=== PATIENT | male | born 1985 | race Caucasian/White ===

== ENCOUNTER 2018-12-20 09:02 | Observation (INO) ==
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
[2018-12-20 09:44] LABS: URINE SOURCE CLEAN CATCH
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
[2018-12-20 09:59] LABS: BILIRUBIN URINE NEGATIVE (NEGATIVE); BLOOD URINE LARGE (NEGATIVE); COLOR BROWN; GLUCOSE URINE NEGATIVE (NEGATIVE); KETONE URINE NEGATIVE (NEGATIVE); LEUKOCYTES URINE NEGATIVE (NEGATIVE); NITRITE URINE NEGATIVE (NEGATIVE); PROTEIN URINE 100 mg/dL (NEGATIVE); TURBIDITY URINE HAZY (CLEAR); UR EPITHELIAL CELLS <10 /HPF (<10); URINE BACTERIA NEGATIVE /HPF; URINE RBC <10 /HPF (<10); UROBILINOGEN URINE NORMAL (NORMAL)
[2018-12-20 10:10] LABS: UR AMPHETAMINES QUAL PRESUMPTIVE POSITIVE (NONE DETECT); UR BARBITUATES QUAL NONE DETECTED (NONE DETECT); UR BENZODIAZEPIN QUAL PRESUMPTIVE POSITIVE (NONE DETECT); UR CANNABINOIDS QUAL PRESUMPTIVE POSITIVE (NONE DETECT); UR COCAINE QUAL NONE DETECTED (NONE DETECT); UR METHADONE QUAL NONE DETECTED (NONE DETECT); UR OPIATES QUAL PRESUMPTIVE POSITIVE (NONE DETECT); UR OXYCODONE QUAL NONE DETECTED (NONE DETECT); UR PCP QUAL NONE DETECTED (NONE DETECT)
[2018-12-20 10:16] LABS: BASO# 0.02 X1000 (0.0-0.2); BASO% 0.1 % (0.0-0.8); EOS# 0.03 X1000 (0.0-0.7); EOS% 0.2 % (0.0-10.0); HEMATOCRIT 39.9 % (42.0-52.0); HEMOGLOBIN 14.1 g/dL (14.0-18.0); IMM GRAN# 0.03 X1000 (0.0-0.04); IMM GRAN% 0.2 % (0.0-0.5); LYMPH# 1.11 X1000 (1.2-3.4); LYMPH% 7.4 % (20.5-51.1); MCH 31.3 PG (27-31); MCHC 35.3 g/dL (33-37); MCV 88.7 FL (81-99); MONO% 7.4 % (1.7-9.3); MPV 10.7 FL (7.4-10.4); NEUT# 12.66 X1000 (1.4-6.5); NEUT% 84.7 % (42.2-75.2); PLT 233 X1000 (130-400); RDW 14.1 % (11.5-14.5); WBC 14.95 X1000 (4.8-10.8)
[2018-12-20 10:29] LABS: AGAP 14; ALB/GLOB RATIO 1.1; ALBUMIN 3.9 g/dL (3.5-5.0); ALKALINE PHOSPHATASE 82 U/L (32-122); BUN 5 mg/dL (8-22); CALCIUM 8.5 mg/dL (8.8-10.2); CHLORIDE 101 mmol/L (98-107); COSMO 274; ESTIMATED GFR > 60; GLUCOSE 92 mg/dL (70-104); GOT 455 U/L (10-34); GPT 117 U/L (10-44); POTASSIUM 3.2 mmol/L (3.5-5.1); SODIUM 139 mmol/L (136-145); TCO2 24 mmol/L (25-35); TOTAL PROTEIN 7.5 g/dL (6.3-8.3)
--- NOTE | 2018-12-20 11:30 | Diag Imaging Result Doc PS360 ---
CT ABD/PELVIS W/IV CONT ONLY - 12/20/2018 INDICATION: left flank pain with gross hematuria COMPARISON: None FINDINGS: The lung bases are clear and the heart size is normal. There is some ill-defined, patchy hypoenhancement of both kidneys bilaterally suggesting pyelonephritis or acute tubular necrosis. There are several small bilateral nonobstructing renal stones measuring up to about 5 mm. Otherwise all abdominal organs are normal. No bowel obstruction or inflammation. No free air or free fluid. Urinary bladder, prostate, and rectum are normal. Normal appendix. Bony structures are intact and well mineralized. IMPRESSION: Heterogeneous kidneys compatible with bilateral pyelonephritis or acute tubular necrosis. Several nonobstructing renal stones bilaterally. This exam was performed using automated exposure control, adjustment of mA or kV according to patient size, and/or use of iterative reconstruction technique Electronically signed by Eran Lane 12/20/2018 11:28 AM
[2018-12-20] MEDS ORDERED: NS 1,000 ML IV ONE (11:38)
[2018-12-20] MEDS ORDERED: TORADOL IV ONE (11:38)
[2018-12-20] MEDS ORDERED: ROCEPHIN 1 GM in NS 50 ML IV ONE (11:41)
[2018-12-20] MEDS ORDERED: LEVAQUIN 500 MG/D5W 500 MG/100 ML IVPB IV SCH (12:30)
[2018-12-20] MEDS ORDERED: ZOFRAN IV PRN (13:07)
[2018-12-20] MEDS ORDERED: NS 1,000 ML IV SCH ×2 (13:07→16:09)
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
--- NOTE | 2018-12-20 14:23 | Diag Imaging Result Doc PS360 ---
US GB < RUQ (LIMITED) - 12/20/2018 INDICATION: elevated LFT TECHNIQUE: COMPARISON: CT abdomen pelvis with contrast earlier today FINDINGS: There are several scattered nonobstructing renal stones of the right kidney. No hydronephrosis. The liver, gallbladder, and pancreas are normal. Common bile duct measures 3 mm. Aorta, IVC, and main portal vein are patent. IMPRESSION: Nonobstructing right renal stones. Electronically signed by Eran Lane 12/20/2018 2:20 PM
[2018-12-20 14:54] LABS: INR 1.89; PROTIME 22.2 Seconds (11.0-16.0)
[2018-12-20] MEDS ORDERED: XANAX PO PRN ×2 (15:14→20:33)
[2018-12-20 15:30] LABS: CK PROFILE > 20000 U/L (24-204)
[2018-12-20 15:48] LABS: CK-MB 7.12 ng/mL (0.0-5.0)
[2018-12-20 17:15] LABS: AGAP 10; ALBUMIN 3.8 g/dL (3.5-5.0); BUN 6 mg/dL (8-22); CALCIUM 8.7 mg/dL (8.8-10.2); CHLORIDE 101 mmol/L (98-107); COSMO 275; CREATININE 1.1 mg/dL (0.7-1.2); ESTIMATED GFR > 60; GLUCOSE 101 mg/dL (70-104); PHOSPHORUS 3.3 mg/dL (2.7-4.5); POTASSIUM 3.3 mmol/L (3.5-5.1); SODIUM 139 mmol/L (136-145); TCO2 28 mmol/L (25-35)
[2018-12-20] MEDS ORDERED: KLOR-CON PO ONE (17:51)
[2018-12-20 18:25] VITALS: BP 114/68
[2018-12-21] MEDS ORDERED: NS 1,000 ML IV SCH (07:00)
[2018-12-22 12:40] LABS: HEPATITIS PROFILE ACUTE SEE COMMENTS
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
== END 2018-12-20 22:00 | disposition left against medical advice (07) ==
LOC: ED 09:02 → INTOOBSV 09:03 → 1N 09:03
PROVIDERS: ATTEND Internal Medicine